=== PATIENT | male | born 1975 | race Caucasian/White ===

== ENCOUNTER → 2019-06-21 08:54 | Outpatient (CLI) | payer MEDICAID ==
--- NOTE | 2019-06-22 13:35 | EC ---
PATIENT:RHEA PORTILLO DATE OF SERVICE: 06/21/19 SEX: M MEDICAL RECORD: [id number] DATE OF : [birth year] [facility] AGE [facility] PAT[facility]: 44 ADMISSION DATE: 06/21/19 REFERRING PHYSICIAN: INTERPRETING PHYSICIAN: PHUC HILL MD ECHOCARDIOGRAM REPORT ECHO CHARGES 4 ECHO COMPLETE Date: 06/21/19 CLINICAL DIAGNOSIS: HEART MURMUR ECHOCARDIOGRAPHIC MEASUREMENTS (adult normal given) AC root (d.<3.7cm) 3.1 cm LV Septum d (<1.2 cm> 1.7 cm Valve Excursion 1.6 cm LV Septum (systole) 1.9 cm Left Atria (s.<4.0cm> 3.6 cm LVPW d(<1.2cm) 1.7 cm RV (d.<2.3cm) 4.5 cm LVPW (sytole) 2.3 cm LV diastole(<5.6CM) 3.8 cm MV E-F(>70mm/sec) cm LV systole 2.3 cm LVOT Diameter 2.1 cm MV exc.(>10mm) 1.6 cm Est.ejection fraction (50-75%) % DOPPLER: LVIT cm/sec A 69.0 cm/sec E 105.0 cm/sec LA cm/sec RVSP 16 mmHg LVOT 128 cm/sec AOP1/2T m/s Asc. Ao 158 cm/sec RVOT 89 cm/sec RA cm/sec PA 127 cm/sec AV Gradient Peak 10.02mmHg AV Mean 5.50 mmHg AV Area 2.9 cm MV Gradient Peak 4.31 mmHg MV Mean 1.71 mmHg MV Area cm COMMENTS: Cold Press Loader: 2 [place] PERLA Stenotypist: 3 Dr. Mcnair TAPE# PACS Pericardial Effusion N DATE OF SERVICE: Adequate 2D, color flow imaging, spectral Doppler, and M-Mode. LVH is present. LV internal dimension is normal. Wall motion is normal. EF is greater than or equal to 55%. Aortic valve is tricuspid. No evidence of stenosis by Doppler interrogation. Left atrium is normal at 3.6 cm. Mitral valve shows no prolapse. Trace MR. Right-sided chamber grossly normal. Trace to mild TR. ECHOCARDIOGRAM REPORT [id number] RHEA PORTILLO TRANSINT:[id number] Voice Confirmation ID: [id number] DOCUMENT ID: [id number] PHUC HILL MD at 1335 CC: [id number] DICTATION DATE: 06/22/19 08 [place] OPERATOR: 06/22/19 1106 DEP CLI 06/21/19 [id number] [place] [address]
== END | disposition home or self-care (01) ==
LOC: D.HCCARDIO 08:54 → D.HCCECHO 11:00
PROVIDERS: ATTEND Internal Medicine Cardiovascular Disease
DX: R09.89 Other specified symptoms and signs involving the circulatory and respiratory systems (principal)